=== PATIENT | male | born 1990 | race Caucasian/White ===

== ENCOUNTER 2016-08-29 16:16 | Emergency (ER) | payer BC ==
[~2016-08-29] VITALS: Ht 182.9 cm; Wt 102.0 kg
[~2016-08-29 16:16] MED LIST: ADVAIR; ALLEGRA D; NASONEX; SINGULAIR
[2016-08-29 16:21] VITALS: TEMP 36.8; Ht 182.9 cm; Wt 102.0 kg
--- NOTE | 2016-08-29 16:41 | EMERGENCY ROOM VISIT NOTE ---
History Report prepared by Rose Mary: Brenton Sexton Under the Supervision of: Dr. Jacek Fields M.D. First contact with patient: 16:28 Chief Complaint: OTHER COMPLAINT Stated Complaint: NUMBNESS IN R ARM, WEAKNESS, TIGHTNESS IN CHEST History of Present Illness The patient is a 25 year old male who presents to the Emergency Room with complaints of intermittent left arm numbness that started two days ago. The patient still has sensation but notes a numb feeling that extends from shoulder to hand. The sensation was initially intermittent but has been constant all day today. The patient has a small area of numbness on his left cheek that started today. The patient denies any increased weakness of the left arm. He intermittently feels brief shooting pain in the chest. The patient currently has a frontal headache. The patient denies trouble speaking or swallowing, neck pain, shortness of breath, leg pain or swelling. He denies any recent injury or trauma. The patient does not travel often but recently drove to [employer] from [place]. He is employed at [employer]. The patient has a history of VSD. He is not diabetic. The patient has not been following up with a PCP. He is not on any regular medications. Source of History: patient Onset: two days ago Position: arm (left) Quality: numbness Timing: intermittent Associated Symptoms: + chest pain, + headache, No SOB, No neck pain, No weakness Review of Systems See HPI for pertinent positives & negatives. A total of 10 systems reviewed and were otherwise negative. Past Medical & Surgical Medical Problems: (1) Asthma (2) VSD (ventricular septal defect) Old medical records were reviewed. Nurse's notes were reviewed and I agree with. Denies history cardiac disease or neurologic disease Family History No pertinent family history Social History Smoking Status: Never Smoker Occupation Status: employed Current/Historical Medications No Active Prescriptions or Reported Meds Allergies Coded Allergies: No Known Allergies (Unverified , 08/29/16) Physical Exam Vital Signs Date Time Temp Pulse Resp B/P Pulse Ox O2 Delivery O2 Flow Rate FiO2 08/29/16 20:06 60 16 142/68 97 08/29/16 17:59 53 16 124/72 97 Room Air 08/29/16 16:21 36.8 58 18 164/91 99 Room Air Physical Exam General: Non ill appearing younger male in no acute distress. HEENT: Normal cephalic atraumatic. Pupils are equal round and reactive to light. Extraocular movements are intact. Oropharynx is pink with moist mucous membranes. No swelling of the mouth lips or tongue. Neck: Supple with a midline trachea. No meningeal signs or stiffness, no JVD or bruits. No Stridor. Chest: Clear to auscultation bilaterally. No wheezes or rhonchi. No increased work of breathing. Heart: regular rate and rhythm. Abdomen: Soft nontender, nondistended without rebound guarding or rigidity. Extremities: No cyanosis clubbing or edema. No calf tenderness or assymetry Spine/Back. Non tender to palpation. No CVA tenderness Skin: Good turgor without rashes. Neurologic exam: Cranial nerves two through 12 are intact. Motor and sensation are intact and symmetrical throughout. No tremor. Medical Decision & Procedures ER Provider Diagnostic Interpretation: Radiology results as stated below per my review and radiologist interpretation: CT SCAN OF THE BRAIN WITHOUT IV CONTRAST CLINICAL HISTORY: Left upper extremity tingling. COMPARISON STUDY: No priors. TECHNIQUE: Unenhanced axial CT scan of the brain is performed from the vertex to the skull base. Automated dose control exposure was utilized. CT DOSE: 614.27 mGy.cm FINDINGS: Brain parenchyma: The brain parenchyma is normal in appearance. There is no hemorrhage, mass effect, or evidence of acute territorial ischemia by CT criteria. Lua-white matter is preserved. No extra-axial fluid collection is seen. Ventricles, sulci, cisterns: Normal in configuration. Megacisterna magna is incidentally noted. Intracranial vasculature: The visualized intracranial vasculature at the skull base is normal in appearance. Calvarium: Unremarkable. Sinuses and mastoids: The visualized paranasal sinuses are clear. The mastoid air cells are well pneumatized. Orbits: The bony orbits are grossly intact. IMPRESSION: No acute intracranial abnormality. Electronically signed by: El Saenz M.D. 08/29/2016 5:20 PM Dictated Date/Time: 08/29/2016 5:17 PM SINGLE VIEW CHEST CLINICAL HISTORY: Atypical chest pain. FINDINGS: An AP, portable, upright chest radiograph is obtained. No prior studies are available for comparison at the time of dictation. The cardiomediastinal silhouette is unremarkable. Nonspecific interstitial thickening is noted. No airspace consolidation, pleural effusion, or pneumothorax is seen. The bony thorax is grossly intact. IMPRESSION: Nonspecific interstitial thickening may represent a mild infectious/inflammatory pneumonitis. No focal airspace consolidation or pleural effusion is identified. Electronically signed by: El Saenz M.D. 08/29/2016 5:04 PM Dictated Date/Time: 08/29/2016 5:03 PM Laboratory Results 08/29/16 17:00 Red Blood Count 5.16, Mean Corpuscular Volume 85.1, Mean Corpuscular Hemoglobin 31.2, Mean Corpuscular Hemoglobin Concent 36.7, Mean Platelet Volume 9.0, Neutrophils (%) (Auto) 58.3, Lymphocytes (%) (Auto) 30.4, Monocytes (%) (Auto) 10.0, Eosinophils (%) (Auto) 0.6, Basophils (%) (Auto) 0.4, Neutrophils # (Auto ) 4.53, Lymphocytes # (Auto) 2.36, Monocytes # (Auto) 0.78, Eosinophils # (Auto ) 0.05, Basophils # (Auto) 0.03 08/29/16 17:00 Test 08/29/16 17:00 08/29/16 17:12 White Blood Count 7.77 K/uL (4.8-10.8) Red Blood Count 5.16 M/uL (4.7-6.1) Hemoglobin 16.1 g/dL (14.0-18.0) Hematocrit 43.9 % (42-52) Mean Corpuscular Volume 85.1 fL (80-100) Mean Corpuscular Hemoglobin 31.2 pg (25-34) Mean Corpuscular Hemoglobin Concent 36.7 g/dl (32-36) Platelet Count 216 K/uL (130-400) Mean Platelet Volume 9.0 fL (7.4-10.4) Neutrophils (%) (Auto) 58.3 % Lymphocytes (%) (Auto) 30.4 % Monocytes (%) (Auto) 10.0 % Eosinophils (%) (Auto) 0.6 % Basophils (%) (Auto) 0.4 % Neutrophils # (Auto) 4.53 K/uL (1.4-6.5) Lymphocytes # (Auto) 2.36 K/uL (1.2-3.4) Monocytes # (Auto) 0.78 K/uL (0.11-0.59) Eosinophils # (Auto) 0.05 K/uL (0-0.5) Basophils # (Auto) 0.03 K/uL (0-0.2) RDW Standard Deviation 37.0 fL (36.4-46.3) RDW Coefficient of Variation 12.0 % (11.5-14.5) Immature Granulocyte % (Auto) 0.3 % Immature Granulocyte # (Auto) 0.02 K/uL (0.00-0.02) Anion Gap 7.0 mmol/L (3-11) Est Creatinine Clear Calc Drug Dose 143.6 ml/min Estimated GFR () 124.6 Estimated GFR (Non- 107.5 BUN/Creatinine Ratio 12.9 (10-20) Calcium Level 8.5 mg/dl (8.5-10.1) Total Bilirubin 0.5 mg/dl (0.2-1) Direct Bilirubin 0.1 mg/dl (0-0.2) Aspartate Amino Transf (AST/SGOT) 28 U/L (15-37) Alanine Aminotransferase (ALT/SGPT) 38 U/L (12-78) Alkaline Phosphatase 64 U/L (45-117) Total Protein 7.4 gm/dl (6.4-8.2) Albumin 4.2 gm/dl (3.4-5.0) Lipase 129 U/L (73-393) Thyroid Stimulating Hormone (TSH) 1.330 uIu/ml (0.300-4.500) Chemistry Specimen Hemolysis Bedside Troponin I 0.000 ng/ml (0-0.045) Laboratory studies as stated above per my review. ECG Indication: other (numbness) Rate (beats per minute): 57 Rhythm: sinus bradycardia Findings: RBBB (incmoplete), no acute ischemic change, other (marked SA) Comparison ECG Date: no prior available ED Course 1630: Past medical records reviewed. The patient was evaluated in room C2b, and a complete history and physical examination were performed. 0: Went to check on the patient. He was at CT. 0: The patient is resting comfortably and is not in any distress. I ordered an MRI. I discussed the plan with him and he agrees. 1953: The patient is still at MRI. 2000: The patient returned from MRI. Medical Decision Differential diagnosis includes CVA, intracranial process, musculoskeletal pain , neuropathy, electrolyte or metabolic abnormality, anxiety, disc disease. This patient comes in as described above. He has had a vague feeling in his left arm for about 3 days ,he has a normal neurologic exam. He may have had slight odd sensations left face at one point as well. He looks well on exam. IV access established. EKG does not suggest ischemia or arrhythmia. He has no acute electrolyte or metabolic normality. He has nothing to suggest sepsis. A CAT scan of his head is unremarkable. I did do an MRI as well to rule out any acute intracranial process such as MS or CVA. MRI of his brain was unremarkable. At this point I do not have any definite explanation. It does not appear to be related to stroke or central neurologic process. It could be related to disc disease. I recommended he follow-up with his regular doctor for recheck on Wednesday and return if: Worsening of symptoms, increasing numbness or, weakness, fever or chills, chest pain, shortness of breath, any new problems concerns. He was happy with the plan and discharged to home. Impression Primary Impression: Tingling of left upper extremity Scribe Attestation The scribe's documentation has been prepared under my direction and personally reviewed by me in its entirety. I confirm that the note above accurately reflects all work, treatment, procedures, and medical decision making performed by me. Departure Information Dispostion Home / Self-Care Prescriptions No Active Prescriptions or Reported Meds Referrals Alverto Talbot M.D. (PCP) Forms HOME CARE DOCUMENTATION FORM, IMPORTANT VISIT INFORMATION, WORK / SCHOOL INSTRUCTIONS Patient Instructions My [facility] Additional Instructions Rest. Drink plenty of fluids. Return if: Worsening of symptoms, numbness or weakness, fever or chills, chest pain, shortness breath, any new problems concerns. Follow-up with her doctor Wednesday for recheck. Return to ER over the weekend if symptoms worsen in anyway.
--- NOTE | 2016-08-29 17:05 | DIAGNOSTIC IMAGING REPORT ---
SINGLE VIEW CHEST CLINICAL HISTORY: Atypical chest pain. FINDINGS: An AP, portable, upright chest radiograph is obtained. No prior studies are available for comparison at the time of dictation. The cardiomediastinal silhouette is unremarkable. Nonspecific interstitial thickening is noted. No airspace consolidation, pleural effusion, or pneumothorax is seen. The bony thorax is grossly intact. IMPRESSION: Nonspecific interstitial thickening may represent a mild infectious/inflammatory pneumonitis. No focal airspace consolidation or pleural effusion is identified. Electronically signed by: El Saenz M.D. 08/29/2016 5:04 PM Dictated Date/Time: 08/29/2016 5:03 PM
[2016-08-29 17:13] LABS: BASO % 0.4 %; BASO ABS # 0.03 K/uL (0-0.2); COMPLETE YES; EOS % 0.6 %; HEMATOCRIT 43.9 % (42-52); IG% 0.3 %; LYMPH % 30.4 %; LYMPH ABS # 2.36 K/uL (1.2-3.4); MEAN CELL VOLUME 85.1 fL (80-100); MEAN CORPUSCULAR HEMOGLOBIN 31.2 pg (25-34); MEAN CORPUSCULAR HGB CONC 36.7 g/dl (32-36); NEUT % 58.3 %; PLATELET COUNT 216 K/uL (130-400); RED BLOOD COUNT 5.16 M/uL (4.7-6.1); WHITE BLOOD COUNT 7.77 K/uL (4.8-10.8)
--- NOTE | 2016-08-29 17:22 | DIAGNOSTIC IMAGING REPORT ---
CT SCAN OF THE BRAIN WITHOUT IV CONTRAST CLINICAL HISTORY: Left upper extremity tingling. COMPARISON STUDY: No priors. TECHNIQUE: Unenhanced axial CT scan of the brain is performed from the vertex to the skull base. Automated dose control exposure was utilized. CT DOSE: 614.27 mGy.cm FINDINGS: Brain parenchyma: The brain parenchyma is normal in appearance. There is no hemorrhage, mass effect, or evidence of acute territorial ischemia by CT criteria. Lua-white matter is preserved. No extra-axial fluid collection is seen. Ventricles, sulci, cisterns: Normal in configuration. Megacisterna magna is incidentally noted. Intracranial vasculature: The visualized intracranial vasculature at the skull base is normal in appearance. Calvarium: Unremarkable. Sinuses and mastoids: The visualized paranasal sinuses are clear. The mastoid air cells are well pneumatized. Orbits: The bony orbits are grossly intact. IMPRESSION: No acute intracranial abnormality. Electronically signed by: El Saenz M.D. 08/29/2016 5:20 PM Dictated Date/Time: 08/29/2016 5:17 PM
[2016-08-29 17:53] LABS: BUN/CREATININE RATIO 12.9 (10-20); CALCIUM 8.5 mg/dl (8.5-10.1); CREATININE 0.98 mg/dl (0.60-1.40); POTASSIUM 3.9 mmol/L (3.5-5.1); THYROID STIMULATING HORMONE 1.33 uIu/ml (0.300-4.500)
[2016-08-29] MEDS ORDERED: GADAVIST IV PRN (19:45)
[2016-08-29 20:06] VITALS: BP 142/68; PULSE 60; O2SAT 97
--- NOTE | 2016-08-29 20:16 | DIAGNOSTIC IMAGING REPORT ---
MRI OF THE BRAIN COMBO CLINICAL HISTORY: Left upper extremity and facial tingling. COMPARISON STUDY: CT of the brain dated 08/29/2016. TECHNIQUE: MRI of the brain was performed utilizing various T1 and T2-weighted sequences in the axial, sagittal, and coronal planes. Contrast-enhanced sequences were acquired following the administration of 10 cc of Gadavist. The examination is performed utilizing the multiple sclerosis protocol. FINDINGS: Brain parenchyma: The brain parenchyma is normal in appearance. There is no hemorrhage or mass effect. There is no restricted diffusion to suggest acute ischemia. No enhancing mass lesion is identified on the postcontrast images. Lua-white matter differentiation is preserved. No extra-axial fluid collection is seen. The cerebellar tonsils are normal in configuration. Ventricles, sulci, and cisterns: Normal in configuration. Megacisterna magna is incidentally noted. Pituitary and sella: Unremarkable. Intracranial vasculature: Normal flow voids are maintained at the skull base. Orbits: The bony orbits are grossly intact. Orbital contents are normal in appearance. Sinuses and mastoids: Mild mucosal thickening is seen within the maxillary antra. The remaining paranasal sinuses and the mastoid air cells are clear. Calvarium: Unremarkable. Cervical cord: Partially visualized cervical spinal cord is normal in morphology and signal intensity. IMPRESSION: No acute intracranial abnormal abnormality. Electronically signed by: El Saenz M.D. 08/29/2016 8:15 PM Dictated Date/Time: 08/29/2016 8:11 PM
== END 2016-08-29 20:34 | disposition home or self-care (01) ==
LOC: C.EDB 16:17 → C.EDC 20:34
DX: R20.2 Paresthesia of skin (principal); R07.9 Chest pain, unspecified; R51 Headache; J45.909 Unspecified asthma, uncomplicated